=== PATIENT | female | born 1980 | race Caucasian/White ===

== ENCOUNTER → 2017-03-02 | Outpatient (CLI) | payer OTHER, SELFPAY ==
[2017-03-02 08:55] LABS: BASO % 0.4 % (0.0-1.0); EOS # 0.3 10^3/uL (0.0-0.50); EOS % 2.7 % (0.0-3.0); IMMATURE GRANULOCYTE % 0.5 % (0-0); LYMPH # 2.7 10^3/uL (1.5-4.5); LYMPH % 25.5 % (24.0-44.0); MEAN CORPUSCULAR HGB CONC 33.3 g/dl (32.0-36.5); MEAN CORPUSCULAR VOLUME 89.9 fl (80.0-96.0); MONO # 0.7 10^3/uL (0.0-0.8); NEUTROPHILS # 6.6 10^3/uL (1.8-7.7); NEUTROPHILS % 63.9 % (36.0-66.0); PLATELET COUNT, AUTOMATED 307 10^3/uL (150-450); RED CELL DISTRIBUTION WIDTH 13.2 % (11.5-14.5); WHITE BLOOD COUNT 10.4 10^3/uL (4.0-10.0)
[2017-03-02 09:36] LABS: ALBUMIN 3.4 GM/DL (3.2-5.2); ALBUMIN/GLOBULIN RATIO 0.89 (1.00-1.93); ALKALINE PHOSPHATASE 83 U/L (45-117); ALT/SGPT 23 U/L (12-78); ANION GAP 10 MEQ/L (8-16); AST/SGOT 17 U/L (7-37); BILIRUBIN,TOTAL 0.5 MG/DL (0.2-1.0); BLOOD UREA NITROGEN 6 MG/DL (7-18); CALCIUM LEVEL 8.7 MG/DL (8.5-10.1); CARBON DIOXIDE LEVEL 24 MEQ/L (21-32); CHLORIDE LEVEL 104 MEQ/L (98-107); CREATININE FOR GFR 0.79 MG/DL (0.55-1.02); GLOMERULAR FILTRATION RATE > 60.0 (>60); GLUCOSE, FASTING 80 MG/DL (70-105); POTASSIUM SERUM 3.8 MEQ/L (3.5-5.1); SODIUM LEVEL 138 MEQ/L (136-145); TOTAL PROTEIN 7.2 GM/DL (6.4-8.2); URIC ACID 2.8 MG/DL (2.6-6.0)
[2017-03-03 10:59] LABS: HBsAg Prenatal NEGATIVE (NEGATIVE)
== END ==
LOC: M LAB 06:55
PROVIDERS: ATTEND Advanced Practice Midwife
DX: Z36.89 Encounter for other specified antenatal screening (principal); Z3A.11 11 weeks gestation of pregnancy

== ENCOUNTER → 2017-03-11 | Outpatient (CLI) | payer BC | LOC: M SMT 11:26 | PROVIDERS: ATTEND Obstetrics & Gynecology | DX: Z13.79 Encounter for other screening for genetic and chromosomal anomalies (principal) ==

== ENCOUNTER → 2017-03-31 | Outpatient (CLI) | payer BC | LOC: M SMT 10:59 | DX: Z36.89 Encounter for other specified antenatal screening (principal); Z3A.18 18 weeks gestation of pregnancy | CPT/HCPCS: 76811 ==

== ENCOUNTER → 2017-04-19 | Outpatient (CLI) | payer BC | LOC: M SMT 14:01 | DX: Z34.82 Encounter for supervision of other normal pregnancy, second trimester (principal); Z3A.21 21 weeks gestation of pregnancy | CPT/HCPCS: 76816 ==

== ENCOUNTER → 2017-05-31 | Outpatient (CLI) | payer BC ==
[2017-05-31 08:17] LABS: HEMOGLOBIN 13.7 g/dl (12.0-16.0); MEAN CORPUSCULAR HGB CONC 33.4 g/dl (32.0-36.5); MEAN CORPUSCULAR VOLUME 89.9 fl (80.0-96.0); PLATELET COUNT, AUTOMATED 294 10^3/uL (150-450); RED BLOOD COUNT 4.56 10^6/uL (4.00-5.40); RED CELL DISTRIBUTION WIDTH 13.3 % (11.5-14.5)
[2017-06-01 08:53] LABS: GLUCOSE CHALLENGE TEST 1 HOUR 89 MG/DL (LESS THAN 140)
[2017-06-01 08:53] LABS: WHITE BLOOD COUNT 12.2 10^3/uL (4.0-10.0)
== END ==
LOC: M LAB 06:47
DX: Z34.82 Encounter for supervision of other normal pregnancy, second trimester (principal)
CPT/HCPCS: 82950

== ENCOUNTER → 2017-06-24 | Outpatient (CLI) | payer BC | LOC: M SMT 11:26 | DX: O10.012 Pre-existing essential hypertension complicating pregnancy, second trimester (principal); Z3A.30 30 weeks gestation of pregnancy ==

== ENCOUNTER → 2017-07-29 | Outpatient (REF) | payer BC | LOC: M LAB REF 13:01 | DX: O10.013 Pre-existing essential hypertension complicating pregnancy, third trimester (principal); Z3A.00 Weeks of gestation of pregnancy not specified | CPT/HCPCS: 87081 ==

== ENCOUNTER → 2017-08-04 | Outpatient (CLI) | payer BC | LOC: M SMT 13:02 | DX: O10.012 Pre-existing essential hypertension complicating pregnancy, second trimester (principal) | CPT/HCPCS: 76816 ==

== ENCOUNTER 2017-08-14 19:29 | Inpatient (IN) | payer BC ==
[2017-08-14] MEDS ORDERED: miSOPROStol 50 MCG 1/2 TAB (S0191) As Ordered (20:17)
[2017-08-14] MEDS: miSOPROStol 50 MCG 1/2 TAB (S0191) PO (20:20)
[2017-08-14 20:43] LABS: HEMATOCRIT 39.4 % (36.0-47.0); HEMOGLOBIN 13.1 g/dl (12.0-15.5); MEAN CORPUSCULAR HEMOGLOBIN 28.9 pg (27.0-33.0); MEAN CORPUSCULAR HGB CONC 33.2 g/dl (32.0-36.5); PLATELET COUNT, AUTOMATED 316 10^3/uL (150-450); RED BLOOD COUNT 4.53 10^6/uL (4.00-5.40); RED CELL DISTRIBUTION WIDTH 14.6 % (11.5-14.5); WHITE BLOOD COUNT 11.1 10^3/uL (4.0-10.0)
[2017-08-15] MEDS: miSOPROStol 50 MCG 1/2 TAB (S0191) PO
[2017-08-15] MEDS ORDERED: OXYTOCIN 30 UNITS IN 0.9% NaCl 500ML IV BAG (J2590) As Ordered (00:23)
[2017-08-15] MEDS: LR 1,000 ML IV ×2 (00:27→14:37)
[2017-08-15] MEDS: OXYTOCIN DRIP 30 UNITS in APPROPRIATE DILUENT 1 EA IV (00:31)
[2017-08-15] MEDS ORDERED: BUTORPHANOL 2 MG/ML INJ (J0595) As Ordered (14:25)
[2017-08-15] MEDS: BUTORPHANOL 2 MG/ML INJ (J0595) IV ×2 (14:30→14:37)
[2017-08-15] MEDS: PROMETHAZINE INJ 25 MG/ML VIAL (J2550) IV (14:37)
[2017-08-15] MEDS ORDERED: FENTANYL 2MCG/ML ROPIVACAINE 0.2% IN 0.9% NACL 200ML IVBAG As Ordered (16:00)
[2017-08-15] MEDS ORDERED: EPIDURAL/PCA KEYS XX (16:55)
[2017-08-15] MEDS ORDERED: diphenhydrAMINE INJ 50MG/ML VIAL (J1200) IV (16:55)
[2017-08-15] MEDS ORDERED: FENTANYL/ROPIVACAINE/NACL BAG 200 ML EPIDURAL (16:55)
[2017-08-15] MEDS ORDERED: REFRIGERATOR IV KEYS XX (16:55)
[2017-08-15] MEDS ORDERED: ePHEDrine SULFATE 25 MG/5 ML(5MG/ML) SYRINGE IV (16:55)
[2017-08-15] MEDS ORDERED: EPIDURAL COMMENT XX (16:55)
[2017-08-15] MEDS ORDERED: NALOXONE INJ 0.4 MG/1 ML VIAL (J2310) IV (16:55)
[2017-08-15] MEDS ORDERED: ONDANSETRON 4MG/2ML VIAL (J2405) IV (16:55)
[2017-08-15] MEDS ORDERED: LACTATED RINGER'S 1000 ML IV (16:55)
[2017-08-15] MEDS ORDERED: DOCUSATE SODIUM 100 MG CAP PO (17:15)
[2017-08-15] MEDS ORDERED: MEASLES,MUMPS,RUBELLA VACCINE INJ (MMR-II) (90707) SC (17:15)
[2017-08-15] MEDS ORDERED: MOM 30ML SUSPENSION UDC PO (17:15)
[2017-08-15] MEDS ORDERED: RHOGAM 300 MCG (1500 IU) INJ (J2790) IM (17:15)
[2017-08-15] MEDS ORDERED: DIBUCAINE 1% OINTMENT 30GM TOP (17:15)
[2017-08-15] MEDS ORDERED: ACETAMINOPHEN 500 MG TAB PO (17:15)
[2017-08-15] MEDS ORDERED: IBUPROFEN 800 MG TAB PO (17:15)
[2017-08-15] MEDS ORDERED: METHYLERGONOVINE MALEATE 0.2 MG TAB PO (17:15)
[2017-08-15] MEDS ORDERED: OXYTOCIN DRIP 30 UNITS in APPROPRIATE DILUENT 1 EA IV (17:30)
[2017-08-16] MEDS: PRENATAL VITAMINS CHEWABLE TABLET PO (08:11)
[2017-08-17] MEDS: PRENATAL VITAMINS CHEWABLE TABLET PO (10:58)
== END 2017-08-17 11:15 | disposition home or self-care (01) | DRG 560 ==
LOC: M LDI 19:29 → M OBS 08-15 19:45
PROVIDERS: Obstetrics & Gynecology
PROC: 3E0DXGC Introduction of Other Therapeutic Substance into Mouth and Pharynx, External Approach (ICD-10-PCS; 2017-08-14)
PROC: 10E0XZZ Delivery of Products of Conception, External Approach (ICD-10-PCS; principal; 2017-08-15)
PROC: 0HQ9XZZ Repair Perineum Skin, External Approach (ICD-10-PCS; 2017-08-15)
PROC: 10907ZC Drainage of Amniotic Fluid, Therapeutic from Products of Conception, Via Natural or Artificial Opening (ICD-10-PCS; 2017-08-15)
DX: O10.02 Pre-existing essential hypertension complicating childbirth (principal); O70.0 First degree perineal laceration during delivery; Z37.0 Single live birth; Z3A.38 38 weeks gestation of pregnancy; Z88.1 Allergy status to other antibiotic agents

== ENCOUNTER → 2019-01-03 | Outpatient (REF) | payer BC ==
[~2019-01-03] MED LIST: IBUP-1114 PO; MAPA500T2 PO; PRENTAB9 PO
[2019-01-05 14:07] LABS: HPV HYBRID CAPTURE II Negative (Negative)
== END ==
LOC: M LAB REF 17:20
PROVIDERS: ATTEND Obstetrics & Gynecology
DX: Z12.4 Encounter for screening for malignant neoplasm of cervix (principal)
CPT/HCPCS: 87624; G0123

== ENCOUNTER → 2019-01-24 | Outpatient (CLI) | payer BC | LOC: M SMT 14:18 | PROVIDERS: ATTEND Obstetrics & Gynecology | DX: Z13.79 Encounter for other screening for genetic and chromosomal anomalies (principal) ==

== ENCOUNTER → 2019-05-01 | Outpatient (CLI) | payer BC, OTHER ==
[2019-05-01 18:10] LABS: BASO % 0.3 % (0.0-1.0); EOS # 0.2 10^3/uL (0.0-0.5); HEMOGLOBIN 13.9 g/dl (12.0-15.5); LYMPH # 2.9 10^3/uL (1.5-5.0); LYMPH % 26.7 % (24.0-44.0); MEAN CORPUSCULAR HEMOGLOBIN 29.2 pg (27.0-33.0); MEAN CORPUSCULAR HGB CONC 31.6 g/dl (32.0-36.5); MEAN CORPUSCULAR VOLUME 92.4 fl (80.0-96.0); MONO # 0.7 10^3/uL (0.0-0.8); MONO % 6.3 % (0.0-5.0); NEUTROPHILS # 6.9 10^3/uL (1.5-8.5); NEUTROPHILS % 64.2 % (36.0-66.0); PLATELET COUNT, AUTOMATED 326 10^3/uL (150-450); RED BLOOD COUNT 4.76 10^6/uL (4.00-5.40); WHITE BLOOD COUNT 10.7 10^3/uL (4.0-10.0)
[2019-05-01 22:05] LABS: CHLAMYDIA DNA AMPLIFICATION NEGATIVE (NEGATIVE); GC DNA AMPLIFICATION NEGATIVE (NEGATIVE)
[2019-05-02 09:14] LABS: HIV 1&2 SCREEN CENTAUR NEGATIVE (NEGATIVE); RUBELLA IgG QUALITATIVE IMMUNE (IMMUNE)
[2019-05-03 11:18] LABS: HEPATITIS C VIRUS ABY INDEX < 0.0 INDEX (<0.8)
== END ==
LOC: M PLALAB 13:04
PROVIDERS: ATTEND Advanced Practice Midwife
DX: Z34.81 Encounter for supervision of other normal pregnancy, first trimester (principal); Z3A.00 Weeks of gestation of pregnancy not specified

== ENCOUNTER → 2019-05-04 | Outpatient (CLI) | payer BC, OTHER | LOC: M PLALAB 14:38 | PROVIDERS: ATTEND Advanced Practice Midwife | DX: Z13.79 Encounter for other screening for genetic and chromosomal anomalies (principal) ==

== ENCOUNTER → 2019-06-09 | Outpatient (REF) | payer OTHER ==
[2019-06-09 18:52] LABS: ALT/SGPT 22 U/L (12-78); BILIRUBIN,TOTAL 0.4 MG/DL (0.2-1.0); CREATININE FOR GFR 0.77 MG/DL (0.55-1.30); GLOMERULAR FILTRATION RATE > 60.0 (>60); LDH LACTATE DEHYDROGENASE 186 U/L (84-246); URIC ACID 2.9 MG/DL (2.6-6.0)
[2019-06-09 18:53] LABS: TOTAL PROTEIN,RANDOM URINE 18.4 MG/DL (0.0-12.0)
== END ==
LOC: M PLALAB 14:13
PROVIDERS: ATTEND Advanced Practice Midwife
DX: Z86.79 Personal history of other diseases of the circulatory system (principal)

== ENCOUNTER → 2019-07-04 | Outpatient (CLI) | payer OTHER ==
--- NOTE | 2019-07-05 08:16 | REP ---
OB ULTRASOUND: Real-time sonographic evaluation of the gravid uterus performed. There is a single living intrauterine gestation. Estimated gestational age is 20 weeks 1 day with EDC 11/20/2019. Today's measurements indicate appropriate growth. BPD 45 mm = 19 weeks 5 days, 40th percentile HC 175 mm = 20 weeks 0 days, 47th percentile AC 152 mm = 20 weeks 3 days, 56th percentile FL 34 mm = 20 weeks 3 days, 60th percentile HC/AC ratio 1.15, normal range 1.06 to 1.24. Estimated weight 349 grams, 56th percentile. Cervix closed and measures 4.9 cm in length. heart rate 142 beats per minute. SEEN/GROSSLY UNREMARKABLE Lateral ventricles yes Posterior fossa yes Upper lip yes Four-chamber heart yes LVOT yes RVOT yes Stomach yes Cord insertion yes Three vessel cord yes Kidneys yes Bladder yes Spine yes position: Transverse with head toward the maternal left side. Placenta: Posterior and grade 1 with no previa or abruption. Amniotic fluid: Within normal limits. Cystic structure left ovary probably represents a corpus luteum 1.3 cm in diameter.
== END ==
LOC: M WHC 14:57
PROVIDERS: ATTEND Advanced Practice Midwife
DX: O99.211 Obesity complicating pregnancy, first trimester (principal); E66.9 Obesity, unspecified; Z3A.20 20 weeks gestation of pregnancy; Z86.79 Personal history of other diseases of the circulatory system

== ENCOUNTER → 2019-08-16 | Outpatient (REF) | payer OTHER ==
[2019-08-16 13:12] LABS: HEMATOCRIT 43.1 % (36.0-47.0); HEMOGLOBIN 14.1 g/dl (12.0-15.5); MEAN CORPUSCULAR HEMOGLOBIN 30.8 pg (27.0-33.0); MEAN CORPUSCULAR HGB CONC 32.7 g/dl (32.0-36.5); MEAN CORPUSCULAR VOLUME 94.1 fl (80.0-96.0); PLATELET COUNT, AUTOMATED 302 10^3/uL (150-450); RED BLOOD COUNT 4.58 10^6/uL (4.00-5.40); WHITE BLOOD COUNT 12.4 10^3/uL (4.0-10.0)
== END ==
LOC: M PLALAB 08:57
PROVIDERS: ATTEND Specialist
DX: Z36.89 Encounter for other specified antenatal screening (principal)

== ENCOUNTER → 2019-10-31 | Outpatient (CLI) | payer OTHER ==
--- NOTE | 2019-12-22 14:30 | REP ---
OBSTETRIC SONOGRAPHY HISTORY: growth and JUAN M. Hypertension. This report was delayed due to a protracted network disruption episode experienced by this facility. FINDINGS: Scanning through the gravid uterus demonstrates a single living intrauterine gestation in a cephalic lie. The placenta is posterior grade 2 without evidence of previa. Amniotic fluid is subjectively normal. JUAN M is normal at 20.1 cm. Closed cervical length is measured at 4.0 cm viewed transabdominally. heart rate is recorded at 140 beats per minute. Left-sided stomach, kidneys and bladder, three-vessel cord are visualized and unremarkable. BIOMETRY CHART: BPD 95 mm 38 weeks 6 days Head Circumference 344 mm 39 weeks 6 days Abdominal Circumference 348 mm 38 weeks 6 days Femur Length 72 mm 36 weeks 6 days Humeral Length 66 mm 38 weeks 2 days Estimated Weight 3491 g 87th percentile IMPRESSION: Viable single intrauterine gestation at 38 weeks 5 days by todays criteria. Estimated date of delivery (ADDY) by todays criteria 11/09/2019. MTDD
== END ==
LOC: M WHC 08:32
PROVIDERS: ATTEND Advanced Practice Midwife
DX: O10.913 Unspecified pre-existing hypertension complicating pregnancy, third trimester (principal); Z3A.38 38 weeks gestation of pregnancy

== ENCOUNTER → 2019-11-13 07:35 | Inpatient (IN) | payer OTHER ==
[~2019-11-13 07:35] MED LIST changes: +ACETAMINOPHEN 500 MG TAB As Ordered ONE; +ACETAMINOPHEN 500 MG TAB ONE; +DOCUSATE SODIUM 100 MG CAP As Ordered ONE; +DOCUSATE SODIUM 100 MG CAP ONE; +FENTANYL 2MCG/ML ROPIVACAINE 0.2% IN 0.9% NACL 100ML IVBAG As Ordered ONE; +FENTANYL 2MCG/ML ROPIVACAINE 0.2% IN 0.9% NACL 100ML IVBAG ONE; +OXYTOCIN 30 UNITS IN 0.9% NaCl 500ML IV BAG (J2590) As Ordered ONE; +OXYTOCIN 30 UNITS IN 0.9% NaCl 500ML IV BAG (J2590) ONE; +PENICILLIN 100,000 U/ML SYRINGE 2.5MU As Ordered ONE; +PENICILLIN 100,000 U/ML SYRINGE 2.5MU ONE; +PENICILLIN G POTASSIUM 5 MU VIAL As Ordered ONE; +PENICILLIN G POTASSIUM 5 MU VIAL ONE; +miSOPROStol 50 MCG 1/2 TAB (S0191) As Ordered ONE; +miSOPROStol 50 MCG 1/2 TAB (S0191) ONE
[2019-12-27 19:54] LABS: HEMATOCRIT 38.6 % (36.0-47.0); HEMOGLOBIN 12.6 g/dl (12.0-15.5); MEAN CORPUSCULAR HEMOGLOBIN 28.4 pg (27.0-33.0); MEAN CORPUSCULAR HGB CONC 32.6 g/dl (32.0-36.5); MEAN CORPUSCULAR VOLUME 86.9 fl (80.0-96.0); PLATELET COUNT, AUTOMATED 314 10^3/uL (150-450); RED BLOOD COUNT 4.44 10^6/uL (4.00-5.40); WHITE BLOOD COUNT 12.4 10^3/uL (4.0-10.0)
--- NOTE | 2020-01-11 17:40 | DN ---
DATE OF DELIVERY: 11/11/2019 GENDER: Female APGARS: 8 and 9 PREDELIVERY DIAGNOSIS: Term labor induction. POSTDELIVERY DIAGNOSIS: Delivered. PROCEDURE: Spontaneous vaginal delivery. DIRECTOR VIDEO: Aravind Maier MD ANESTHESIA: Epidural. ESTIMATED BLOOD LOSS: 300 mL. FINDINGS: 8 pound 12 ounce female with Apgars 8 and 9. DESCRIPTION OF DELIVERY: After second stage of five minutes, the patient had spontaneous delivery of an 8 pound 12 ounce female with Apgars 8 and 9 under epidural anesthesia. Nuchal cord x1 was reduced manually. The shoulders delivered with ease. The baby was handed to the mother. The cord was double clamped and cut. The placenta delivered spontaneously and appeared to be intact. The patient received intravenous (IV) Pitocin immediately after delivery for delivery of the placenta. A first-degree perineal laceration was repaired with 2-0 Chromic in the usual fashion. Sponge and needle counts were correct. MTDD
== END | disposition home or self-care (01) | DRG 560 ==
LOC: M LDI 11-11 20:45 → UNDOADMIN 11-11 20:45 → M LDI 11-10 20:45
PROVIDERS: ADMIT Specialist; ATTEND Specialist
PROC: 0HQ9XZZ Repair Perineum Skin, External Approach (ICD-10-PCS; 2019-11-10)
PROC: 3E0DXGC Introduction of Other Therapeutic Substance into Mouth and Pharynx, External Approach (ICD-10-PCS; 2019-11-10)
PROC: 3E033VJ Introduction of Other Hormone into Peripheral Vein, Percutaneous Approach (ICD-10-PCS; 2019-11-10)
PROC: 10E0XZZ Delivery of Products of Conception, External Approach (ICD-10-PCS; principal; 2019-11-11)
DX: O10.92 Unspecified pre-existing hypertension complicating childbirth (principal); O09.523 Supervision of elderly multigravida, third trimester; Z37.0 Single live birth; Z3A.38 38 weeks gestation of pregnancy; O69.81X0 Labor and delivery complicated by cord around neck, without compression, not applicable or unspecified; O70.0 First degree perineal laceration during delivery

== ENCOUNTER → 2020-01-18 | Outpatient (CLI) | payer OTHER ==
[~2020-01-18] MED LIST changes: -ACETAMINOPHEN 500 MG TAB As Ordered ONE; -ACETAMINOPHEN 500 MG TAB ONE; -DOCUSATE SODIUM 100 MG CAP As Ordered ONE; -DOCUSATE SODIUM 100 MG CAP ONE; -FENTANYL 2MCG/ML ROPIVACAINE 0.2% IN 0.9% NACL 100ML IVBAG As Ordered ONE; -FENTANYL 2MCG/ML ROPIVACAINE 0.2% IN 0.9% NACL 100ML IVBAG ONE; -OXYTOCIN 30 UNITS IN 0.9% NaCl 500ML IV BAG (J2590) As Ordered ONE; -OXYTOCIN 30 UNITS IN 0.9% NaCl 500ML IV BAG (J2590) ONE; -PENICILLIN 100,000 U/ML SYRINGE 2.5MU As Ordered ONE; -PENICILLIN 100,000 U/ML SYRINGE 2.5MU ONE; -PENICILLIN G POTASSIUM 5 MU VIAL As Ordered ONE; -PENICILLIN G POTASSIUM 5 MU VIAL ONE; -miSOPROStol 50 MCG 1/2 TAB (S0191) As Ordered ONE; -miSOPROStol 50 MCG 1/2 TAB (S0191) ONE
== END ==
LOC: M LABSMTC 10:33
PROVIDERS: ATTEND Anesthesiology
DX: Z01.812 Encounter for preprocedural laboratory examination (principal); Z20.828 Contact with and (suspected) exposure to other viral communicable diseases
CPT/HCPCS: C9803; U0003

== ENCOUNTER 2020-01-23 11:29 | Day surgery (SDC) | payer OTHER ==
[~2020-01-23] VITALS: Ht 175.3 cm; Wt 103.0 kg
[~2020-01-23 11:29] MED LIST changes: +LR 1,000 ML IV ONE
[2020-01-23] MEDS ORDERED: ONDANSETRON 4MG/2ML VIAL As Ordered ONE (12:06)
[2020-01-23] MEDS ORDERED: ROCURONIUM BROMIDE 50 MG/5 ML VIAL As Ordered ONE (12:06)
[2020-01-23] MEDS ORDERED: MIDAZOLAM INJ 2MG/2ML VIAL (J2250 PER 1MG) As Ordered ONE (12:06)
[2020-01-23] MEDS ORDERED: fentaNYL 100 MCG/2 ML INJECTION (J3010) As Ordered ONE ×2 (12:06→13:10)
[2020-01-23] MEDS ORDERED: LIDOCAINE 2% 100MG/5ML SDV (FOR ANES.) As Ordered ONE (12:06)
[2020-01-23] MEDS ORDERED: propofoL 200 MG/20 ML VIAL As Ordered ONE (12:06)
[2020-01-23] MEDS ORDERED: dexameTHASONE 4 MG/ML 1ML VIAL (J1100 PER 1MG) As Ordered ONE (12:06)
[2020-01-23 12:33] LABS: HEMATOCRIT 43.4 % (36.0-47.0); HEMOGLOBIN 13.3 g/dl (12.0-15.5); MEAN CORPUSCULAR HEMOGLOBIN 25.8 pg (27.0-33.0); MEAN CORPUSCULAR HGB CONC 30.6 g/dl (32.0-36.5); MEAN CORPUSCULAR VOLUME 84.1 fl (80.0-96.0); PLATELET COUNT, AUTOMATED 347 10^3/uL (150-450); RED BLOOD COUNT 5.16 10^6/uL (4.00-5.40); WHITE BLOOD COUNT 7.2 10^3/uL (4.0-10.0)
[2020-01-23] MEDS ORDERED: BUPIVACAINE HCL 0.25% 30ML VIAL As Ordered ONE (12:36)
[2020-01-23] MEDS ORDERED: KETOROLAC 60MG 2ML VIAL As Ordered ONE (13:13)
[2020-01-23] MEDS ORDERED: SUGAMMADEX SODIUM 500 MG/5 ML VIAL (BRIDION) As Ordered ONE (13:13)
[2020-01-23] MEDS ORDERED: ACETAMINOPHEN 1000MG 100ML IV BTL (OFIRMEV) (J0131 PER 10MG) As Ordered ONE (13:13)
[2020-01-23] MEDS ORDERED: oxyCODONE 5MG TAB PO PRN (14:30)
[2020-01-23] MEDS ORDERED: HYDROMORPHONE HCL 0.5 MG/ 0.5 ML SYRINGE (J1170 PER 1) IV PRN (14:30)
[2020-01-23] MEDS ORDERED: ONDANSETRON 4MG/2ML VIAL IV PRN (14:30)
[2020-01-23] MEDS ORDERED: fentaNYL 100 MCG/2 ML INJECTION (J3010) IV PRN (14:30)
[2020-01-23] MEDS ORDERED: LR 1,000 ML IV SCH ×2 (14:30→15:30)
[2020-01-23 15:05] VITALS: BP 131/91
[2020-01-23] MEDS ORDERED: PERCOCET 5MG/325MG TAB PO PRN (15:30)
--- NOTE | 2020-01-23 21:30 | ROOPDOC ---
[facility] Report Of Operation Report of Operation DATE OF PROCEDURE: 01/23/20 PREPROCEDURE DIAGNOSES: Undesired fertility POSTPROCEDURE DIAGNOSES: same. PROCEDURE: Laparoscopic bilateral salpingectomy. SURGEON: Kory Pollard MD ANESTHESIA: Gen. endotracheal anesthesia. ESTIMATED BLOOD LOSS: Approximately 10 mL. COMPLICATIONS: None. FINDINGS: Normal pelvis including uterus, fallopian tubes and ovaries. Normal upper abdomen. PROCEDURE NOTE: Patient was taken to the operating room where general endotracheal anesthesia induced. She was prepped draped sterile fashion in the dorsal lithotomy position. A sponge stick was placed in the vagina and uses manipulator. The bladder was emptied with a catheter. A periumbilical incision was made with the scalpel. A Veress needle was placed through this incision while tenting up on the skin of the abdomen.. Intra-abdominal location of the Veress needle was assessed with use of a saline filled syringe. A pneumoperitoneum was created. The Veress needle was removed. A 5 mm trocar using the Visiport was inserted through this incision. A 5 and 8 mm suprapubic port was placed under direct visualization without difficulty. A 5 mm scope with camera used to visualize the abdomen and pelvis. The patient's placed in Trendelenburg position. A grasping instrument was used to elevate each fallopian tube. The fallopian tubes were detached from their broad ligament attachments by using LigaSure. Both fallopian tubes were excised near their origins. Both fallopian tubes removed through the suprapubic ports. All instruments were removed. The pneumoperitoneum was released. The skin was closed with 4-0 Monocryl subcuticular sutures. Sponge, instrument and needle counts are correct. KORY POLLARD MD Jan 23, 2020 21:30
== END 2020-01-23 15:05 | disposition home or self-care (01) ==
LOC: M SDC 11:29
PROVIDERS: ATTEND Specialist
DX: Z30.2 Encounter for sterilization (principal); Z88.2 Allergy status to sulfonamides
CPT/HCPCS: 36415; 58661; 81025; 85027; 88302; J0131; J1100; J1885; J2250; J2405; J3010